=== PATIENT | male | born 1975 | race Caucasian/White ===

== ENCOUNTER → 2018-04-05 10:33 | Outpatient (CLI) | payer BC, SELFPAY ==
[2018-04-05 11:30] LABS: Basophils % 0.5 % (0.1-2.0); Eosinophils # 0.2 K/mm3 (0.0-0.4); Eosinophils % 3.2 % (0.1-12.0); Hematocrit 46.4 % (42.0-52.0); Lymphocytes # 1.6 K/mm3 (0.7-4.5); Lymphocytes % 32.9 K/mm3 (10-50); Mean Corpuscular HGB Conc 34.5 g/dL (31.8-35.4); Mean Corpuscular Hemoglobin 28.9 pg (27.0-31.2); Mean Corpuscular Volume 83.9 fl (80-94); Mean Platelet Volume 7.8 fl (7.4-10.4); Monocytes # 0.4 K/mm3 (0.1-1.0); Monocytes % 7.9 % (1.7-9.3); Neutrophils # 2.6 K/mm3 (1.8-7.8); Neutrophils % 55.6 % (37.0-80.0); Platelet Count 134 K/mm3 (142-424); Red Blood Count 5.54 M/mm3 (4.60-6.20); Red Cell Distribution Width 12.7 % (11.5-17.5); White Blood Count 4.7 K/mm3 (4.8-10.8)
[2018-04-05 12:57] LABS: Alanine Aminotransferase 24 U/L (12-78); Albumin/Globulin Ratio 1.2 (1.1-1.8); Alkaline Phosphatase 116 U/L (46-116); Anion Gap 14.1 mEq/L (5-15); Aspartate Amino Transferase 16 U/L (15-37); Bilirubin,Total 0.4 mg/dL (0.2-1.0); Blood Urea Nitrogen 15 mg/dL (7-18); Calcium 8.4 mg/dL (8.5-10.1); Carbon Dioxide 23 mmol/L (21.0-32.0); Chloride 104 mmol/L (98-107); Creatinine,Serum 1.07 mg/dL (0.70-1.30); Estimated Glomerular Filt Rate 76 ml/min (>60); Free Thyroxine Index 2.3 ug/dL (5.93-13.13); GFR (African American) 92 ML/MIN (>60); Globulin 3.3 gm/dl (1.3-3.2); Glucose 85 mg/dL (74-106); Potassium 4.1 mmoL/L (3.5-5.1); Sodium 137 mmol/L (136-145); T4 (Thyroxine) 7.5 ug/dl (4.7-13.3); Total Protein,Serum 7.3 gm/dL (6.4-8.2); Triiodothryronine (T3) Uptake 30 % (31-39)
[2018-04-05 13:05] LABS: Erythrocyte Sedimentation Rate 11 mm/hr (0-15)
[2018-04-07 11:11] LABS: Anti-Centromere B Antibodies 0.6 AI (0.0-0.9); Anti-Jo-1 <0.2 AI (0.0-0.9); Anti-Smith Antibody <0.2 AI (0.0-0.9); Antichromatin Antibodies 5.3 AI (0.0-0.9); Antiscleroderma-70 Antibodies <0.2 AI (0.0-0.9); RNP Antibodies <0.2 AI (0.0-0.9); Sjogren's Anti-SS-A <0.2 AI (0.0-0.9); Sjogren's Anti-SS-B <0.2 AI (0.0-0.9)
[2018-04-08 09:19] LABS: Anti-DNA (DS) Ab Qn 4 IU/mL (0-9)
== END ==
PROVIDERS: Visit Provider Internal Medicine Adolescent Medicine
DX: L40.9 Psoriasis, unspecified (principal); R76.8 Other specified abnormal immunological findings in serum; D69.6 Thrombocytopenia, unspecified
CPT/HCPCS: 36415; 80053; 84436; 84443; 84479; 85025; 85651; 86225; 86235

== ENCOUNTER → 2019-11-20 10:21 | Outpatient (CLI) | payer BC, SELFPAY ==
[2019-11-20 11:09] LABS: Basophils % 0.3 % (0.1-2.0); Eosinophils # 0.1 K/mm3 (0.0-0.4); Eosinophils % 2.3 % (0.1-12.0); Hematocrit 45.2 % (42.0-52.0); Hemoglobin 15.8 g/dL (14.1-18.0); Lymphocytes # 1.4 K/mm3 (0.7-4.5); Lymphocytes % 27.6 % (10-50); Mean Corpuscular HGB Conc 34.9 g/dL (31.8-35.4); Mean Corpuscular Hemoglobin 29.5 pg (27.0-31.2); Mean Corpuscular Volume 84.6 fl (80-94); Mean Platelet Volume 7.9 fl (7.4-10.4); Monocytes # 0.4 K/mm3 (0.1-1.0); Monocytes % 6.7 % (1.7-9.3); Neutrophils # 3.3 K/mm3 (1.8-7.8); Neutrophils % 63.1 % (37.0-80.0); Platelet Count 147 K/mm3 (142-424); Red Blood Count 5.34 M/mm3 (4.60-6.20); Red Cell Distribution Width 13.2 % (11.5-17.5); White Blood Count 5.2 K/mm3 (4.8-10.8)
[2019-11-20 12:20] LABS: Alanine Aminotransferase 32 U/L (12-78); Albumin Level 4.1 gm/dL (3.4-5.0); Albumin/Globulin Ratio 1.4 (1.1-1.8); Alkaline Phosphatase 100 U/L (46-116); Anion Gap 13.9 mEq/L (5-15); Aspartate Amino Transferase 15 U/L (15-37); Bilirubin,Total 0.6 mg/dL (0.2-1.0); Blood Urea Nitrogen 12 mg/dL (7-18); Calcium 8.7 mg/dL (8.5-10.1); Carbon Dioxide 26 mmol/L (21.0-32.0); Chloride 105 mmol/L (98-107); Estimated Glomerular Filt Rate 73 ml/min (>60); GFR (African American) 89 ML/MIN (>60); Glucose 100 mg/dL (74-106); Potassium 3.9 mmoL/L (3.5-5.1); Sodium 141 mmol/L (136-145); Total Protein,Serum 7.1 gm/dL (6.4-8.2)
== END ==
PROVIDERS: Internal Medicine Adolescent Medicine; Visit Provider Nurse Practitioner Family
DX: Z86.2 Personal history of diseases of the blood and blood-forming organs and certain disorders involving the immune mechanism (principal)
CPT/HCPCS: 36415; 80053; 85025

== ENCOUNTER → 2020-02-23 17:06 | Outpatient (CLI) | payer MEDICAID, SELFPAY | PROVIDERS: PCP Nurse Practitioner Family; Visit Provider Nurse Practitioner Family | DX: G47.33 Obstructive sleep apnea (adult) (pediatric) (principal); J44.9 Chronic obstructive pulmonary disease, unspecified; E66.9 Obesity, unspecified | CPT/HCPCS: G0399 ==

== ENCOUNTER → 2021-02-23 07:21 | Outpatient (CLI) | payer MEDICAID, SELFPAY ==
[2021-02-23 08:14] LABS: Basophils % 0.5 % (0.1-2.0); Eosinophils # 0.1 K/mm3 (0.0-0.4); Eosinophils % 1.8 % (0.1-12.0); Hematocrit 45.3 % (42.0-52.0); Hemoglobin 15.7 g/dL (14.1-18.0); Lymphocytes # 1.7 K/mm3 (0.7-4.5); Lymphocytes % 34.6 % (10-50); Mean Corpuscular HGB Conc 34.7 g/dL (31.8-35.4); Mean Corpuscular Hemoglobin 28.5 pg (27.0-31.2); Mean Corpuscular Volume 82.1 fl (80-94); Mean Platelet Volume 7.5 fl (7.4-10.4); Monocytes # 0.3 K/mm3 (0.1-1.0); Monocytes % 6.9 % (1.7-9.3); Neutrophils # 2.7 K/mm3 (1.8-7.8); Neutrophils % 56.3 % (37.0-80.0); Platelet Count 171 K/mm3 (142-424); Red Blood Count 5.52 M/mm3 (4.60-6.20); Red Cell Distribution Width 13.4 % (11.5-17.5); White Blood Count 4.9 K/mm3 (4.8-10.8)
[2021-02-23 09:11] LABS: Alanine Aminotransferase 22 U/L (12-78); Albumin Level 4.3 g/dl (3.5-5.0); Albumin/Globulin Ratio 1.6 (1.1-1.8); Alkaline Phosphatase 101 U/L (38-126); Anion Gap 11.2 mEq/L (5-15); Aspartate Amino Transferase 24 U/L (17-59); Bilirubin,Total 0.5 mg/dl (0.2-1.3); Blood Urea Nitrogen 18 mg/dl (9-20); Calcium 9.2 mg/dl (8.4-10.2); Carbon Dioxide 28 mmol/L (22.0-30.0); Chloride 104 mmol/L (98-107); Chol/HDL Ratio 8.2 (1-3.5); Cholesterol 172 mg/dl (140-200); Estimated Glomerular Filt Rate 73 ml/min (>60); GFR (African American) 88 ML/MIN (>60); Globulin 2.7 g/dL (1.3-3.2); Glucose 103 mg/dl (74-100); HDL Cholesterol 21 mg/dl (40-60); Potassium 4.2 mmoL/L (3.5-5.1); Sodium 139 mmol/L (136-145); Triglycerides 284 mg/dl (30-150); VLDL Cholesterol 57 mg/dL (0-40)
[2021-02-23 09:22] LABS: Direct LDL Cholesterol 104.77 mg/dL (100-129)
[2021-02-23 09:42] LABS: Prostate Specific Ag Screen 1.1 ng/ml (0.0-4.0); Thyroid Stimulating Hormone 5.11 uIU/mL (0.465-4.68)
[2021-02-23 09:48] LABS: Hemoglobin A1C 5.3 % (4.0-6.0)
[2021-02-26 10:42] LABS: Testosterone,Total 215 ng/dL (264-916)
== END ==
PROVIDERS: Visit Provider Nurse Practitioner Family
DX: I10 Essential (primary) hypertension (principal); E78.2 Mixed hyperlipidemia; N52.9 Male erectile dysfunction, unspecified; Z12.5 Encounter for screening for malignant neoplasm of prostate; Z86.2 Personal history of diseases of the blood and blood-forming organs and certain disorders involving the immune mechanism
CPT/HCPCS: 36415; 80053; 80061; 83036; 84403; 84439; 84443; 85025; G0103

== ENCOUNTER → 2021-04-13 14:34 | Outpatient (CLI) | payer MEDICAID, SELFPAY ==
--- NOTE | 2021-04-13 14:37 | XR_ITS ---
PROCEDURE: XR LUMBAR SPINE MIN 4V CLINICAL INDICATION: ACUTE MIDLINE LOW BACK PAIN W/O SCIATICA COMPARISON: MR [facility] MRI-L-SPINE W/WO from 10/17/2015 FINDINGS: No fracture or dislocation. No lytic or blastic change. There is normal mineralization. There is mild degenerative disc disease at T11-T12 T12-L1 and L1-L2 with minimal endplate irregularity at L1-L2. There is mild dorsal subluxation the lower coccyx by 5 mm and is age indeterminate. Other findings:None. IMPRESSION: Mild degenerative change. Minimal dorsal subluxation of the lower coccyx age indeterminate Dictated by: Marck Knowles MD 04/13/2021 15:24 Marck Knowles MD in [place] 04/13/2021 15:24
== END ==
PROVIDERS: PCP Nurse Practitioner Family; Visit Provider Nurse Practitioner Family
DX: M54.5 Low back pain (principal)
CPT/HCPCS: 72110

== ENCOUNTER → 2021-10-02 12:47 | Outpatient (CLI) | payer MEDICAID, SELFPAY ==
--- NOTE | 2021-10-02 13:04 | XR_ITS ---
PROCEDURE: XR SCAPULA LT CLINICAL INDICATION: PAIN COMPARISON: No exams were available for comparison FINDINGS: No fracture or dislocation. No lytic or blastic change. There is normal mineralization. The joint spaces are well-preserved. No significant degenerative/arthritic changes. No erosive changes evident. Other findings:None. IMPRESSION: No acute findings. Dictated by: Marck Knowles MD 10/02/2021 15:54 Marck Knowles MD in [place] 10/02/2021 15:54
[2021-10-02 13:23] LABS: Basophils % 0.7 % (0.1-2.0); Eosinophils # 0.1 K/mm3 (0.0-0.4); Eosinophils % 1.5 % (0.1-12.0); Hematocrit 46.5 % (42.0-52.0); Hemoglobin 16.5 g/dL (14.1-18.0); Lymphocytes # 1.3 K/mm3 (0.7-4.5); Lymphocytes % 32.2 % (10-50); Mean Corpuscular HGB Conc 35.5 g/dL (31.8-35.4); Mean Corpuscular Hemoglobin 29.1 pg (27.0-31.2); Mean Platelet Volume 7.4 fl (7.4-10.4); Monocytes # 0.4 K/mm3 (0.1-1.0); Monocytes % 9.1 % (1.7-9.3); Neutrophils # 2.3 K/mm3 (1.8-7.8); Neutrophils % 56.5 % (37.0-80.0); Platelet Count 158 K/mm3 (142-424); Red Blood Count 5.66 M/mm3 (4.60-6.20); Red Cell Distribution Width 13.1 % (11.5-17.5); White Blood Count 4.1 K/mm3 (4.8-10.8)
[2021-10-02 14:56] LABS: Free T4 (Free Thyroxine) 0.86 ng/dl (0.78-2.19)
[2021-10-02 15:01] LABS: Chloride 102 mmol/L (98-107); Potassium 4.5 mmoL/L (3.5-5.1); Sodium 139 mmol/L (136-145)
[2021-10-02 15:03] LABS: Alanine Aminotransferase 32 U/L (12-78); Alkaline Phosphatase 92 U/L (38-126); Anion Gap 13.5 mEq/L (5-15); Aspartate Amino Transferase 28 U/L (17-59); Bilirubin,Total 0.5 mg/dl (0.2-1.3); Blood Urea Nitrogen 16 mg/dl (9-20); Carbon Dioxide 28 mmol/L (22.0-30.0); Estimated Glomerular Filt Rate 73 ml/min (>60); GFR (African American) 88 ML/MIN (>60)
[2021-10-02 15:04] LABS: Albumin Level 4.6 g/dl (3.5-5.0); Albumin/Globulin Ratio 1.6 (1.1-1.8); Calcium 9.1 mg/dl (8.4-10.2); Globulin 2.8 g/dL (1.3-3.2); Glucose 105 mg/dl (74-100); Magnesium 1.9 mg/dl (1.6-2.3); Total Protein,Serum 7.4 g/dl (6.3-8.2)
[2021-10-02 15:33] LABS: Thyroid Stimulating Hormone 2.33 uIU/mL (0.465-4.68)
== END ==
PROVIDERS: Visit Provider Nurse Practitioner Family
DX: I10 Essential (primary) hypertension (principal); R79.89 Other specified abnormal findings of blood chemistry; Z86.2 Personal history of diseases of the blood and blood-forming organs and certain disorders involving the immune mechanism
CPT/HCPCS: 36415; 73010; 80053; 83735; 84439; 84443; 85025

== ENCOUNTER → 2022-08-04 08:50 | Outpatient (CLI) | payer MEDICAID, SELFPAY ==
[2022-08-04 09:10] LABS: Basophils % 0.8 % (0.1-2.0); Eosinophils # 0.1 K/mm3 (0.0-0.4); Eosinophils % 3.1 % (0.1-12.0); Hematocrit 46.4 % (42.0-52.0); Hemoglobin 15.7 g/dL (14.1-18.0); Lymphocytes # 1.3 K/mm3 (0.7-4.5); Lymphocytes % 33.1 % (10-50); Mean Corpuscular HGB Conc 33.9 g/dL (31.8-35.4); Mean Corpuscular Hemoglobin 29.1 pg (27.0-31.2); Mean Corpuscular Volume 85.8 fl (80-94); Mean Platelet Volume 8.8 fl (7.4-10.4); Monocytes # 0.3 K/mm3 (0.1-1.0); Monocytes % 7.9 % (1.7-9.3); Neutrophils # 2.1 K/mm3 (1.8-7.8); Neutrophils % 55.2 % (37.0-80.0); Platelet Count 169 K/mm3 (142-424); Red Blood Count 5.41 M/mm3 (4.60-6.20); Red Cell Distribution Width 13.5 % (11.5-17.5); White Blood Count 3.8 K/mm3 (4.8-10.8)
[2022-08-04 09:40] LABS: Alanine Aminotransferase 21 U/L (12-78); Albumin Level 4.1 g/dl (3.5-5.0); Albumin/Globulin Ratio 1.5 (1.1-1.8); Alkaline Phosphatase 114 U/L (38-126); Aspartate Amino Transferase 25 U/L (17-59); Bilirubin,Total 0.6 mg/dl (0.2-1.3); Blood Urea Nitrogen 15 mg/dl (9-20); Calcium 8.5 mg/dl (8.4-10.2); Carbon Dioxide 26 mmol/L (22.0-30.0); Chloride 104 mmol/L (98-107); Chol/HDL Ratio 6.9 (1-3.5); Cholesterol 179 mg/dl (140-200); Estimated Glomerular Filt Rate 81 ml/min (>60); GFR (African American) 98 ML/MIN (>60); Globulin 2.7 g/dL (1.3-3.2); Glucose 112 mg/dl (74-100); HDL Cholesterol 26 mg/dl (40-60); Sodium 142 mmol/L (136-145); Total Protein,Serum 6.8 g/dl (6.3-8.2); Triglycerides 137 mg/dl (30-150); VLDL Cholesterol 27 mg/dL (0-40)
[2022-08-04 09:57] LABS: Direct LDL Cholesterol 105.15 mg/dL (100-129)
[2022-08-04 10:55] LABS: Anion Gap 16.6 mEq/L (5-15); Potassium 4.6 mmoL/L (3.5-5.1)
[2022-08-04 11:29] LABS: Thyroid Stimulating Hormone 1.96 uIU/mL (0.465-4.68)
[2022-08-05 08:10] LABS: Testosterone,Total 266 ng/dL (264-916)
== END ==
PROVIDERS: Nurse Practitioner Family; PCP Nurse Practitioner Family; Visit Provider Nurse Practitioner Family
DX: I10 Essential (primary) hypertension (principal); E78.2 Mixed hyperlipidemia; R79.89 Other specified abnormal findings of blood chemistry; N52.9 Male erectile dysfunction, unspecified
CPT/HCPCS: 36415; 80053; 80061; 84403; 84443; 85025

== ENCOUNTER 2024-08-11 13:56 | Emergency (ER) | payer SELFPAY ==
--- NOTE | 2024-08-11 14:01 | XR_ITS ---
PROCEDURE INFORMATION: Exam: XR Left Hand Exam date and time: 08/11/2024 1:57 PM Age: 49 years old Clinical indication: Pain; Finger(s); Left; Patient HX: Caught thumb in gate TECHNIQUE: Imaging protocol: Radiologic exam of the left hand. Views: 3 or more views. COMPARISON: No relevant prior studies available. FINDINGS: Bones/joints: There is a possible subtle fracture seen involving the 1st distal phalanx near its base. This is seen only on one view adequately. Soft tissues: Normal. IMPRESSION: Possible fracture base of the 1st distal phalanx.
[2024-08-11 14:10] VITALS: BP 141/86; PULSE 73; RESP 18; TEMP 36.6; O2SAT 98; BMI 29.3
--- NOTE | 2024-08-11 14:28 | EXP.UTC ---
Discharge Plan Disposition Patient Disposition: Home, Self-Care Condition: Good Prescriptions Prescriptions: New cephalexin 500 mg capsule 500 mg PO QID 10 Days Qty: 40 0RF Referrals Follow up/Referrals: Marco A Tavares DO [Staff Physician] - See instructions Janeth Austin APRN [Primary Care Provider] - See instructions Activity Restrictions/Add. Instructions Additional Instructions/Restrictions: Rest the extremity, apply ice for 15 minutes as tolerated three or four times per day, Elevate the extremity as tolerated while you are resting. Take ibuprofen for pain. Take the cephalexin (keflex-antibiotics) as directed. Follow up with Dr. Tavares (orthopedics). I put in a referral and called him, but you need to call his office and schedule an appointment. His office phone number will be on this paperwork. Follow up with your regular doctor. GO TO THE ER FOR ANY WORSENING SYMPTOMS Clinical Impressions Clinical Impression: Fracture of thumb, left, open, Laceration of left thumb Stand Alone Forms Stand Alone Forms: Work/School Release Instructions Patient Instructions: DI for Finger Fracture, How to Take Care of Your Splint Print Language Print Language: Greenlandic Discharge ED Provider: Daren Vivas [facility] HPI General Stated complaint: thumb xray Mode of Arrival: Ambulatory Source of Information: Patient Limitations: No Limitations Time Seen by Provider: 08/11/24 14:28 Description of Symptoms (Recalled from Triage Doc. by RN): PATIENT C/O INJURY/LACERATION TO LEFT THUMB AFTER GETTING IT HIT AT WORK TODAY HEENT Symptoms (Recalled from RN notes): No Resp Symptoms (Recalled from RN notes): No Skin Symptoms (Recalled from RN notes): Yes MS Symptoms (Recalled from RN notes): Yes Functional Status (Recalled from RN notes): WNL History of Present Illness Provider Complaint: He states that while at his job he got his left thumb caught in a gate latch. This pinched his thumb and caused a laceration. He denies any other injury. Related Data Previous Rx's ?Medication ?Instructions ?Recorded cephalexin 500 mg capsule 500 mg PO QID 10 days #40 caps 08/11/24 Allergies Allergy/AdvReac Type Severity Reaction Status Date / Time No Known Allergies Allergy Unverified 03/10/21 15:05 Worker's Comp Is this a Worker's Comp case?: No [facility] Disclaimer: The information contained in this section may have been updated after the patient was seen, as this information can be updated by other users. Medical History (Updated 08/11/24 @ 15:02 by Daren Vivas APRN) Hypertension Social History Smoking Status: Former smoker alcohol intake: current alcohol intake frequency: holidays/special occasions only substance use type: denies use current occupational status: unemployed Travel in the last 8 weeks: None household members: spouse and family housing: house ROS Obtained: Yes All systems reviewed & no additional complaints except as documented Constitutional Constitutional: Denies chills and Denies fever(s) Eyes Eyes: Denies eye discharge ENT Ears, Nose, Mouth, and Throat: Denies dizziness, Denies otalgia and Denies sore throat Cardiovascular Cardiovascular: Denies chest pain Respiratory Respiratory: Denies shortness of breath, Denies chest congestion, Denies cough, Denies stridor and Denies wheezing Gastrointestinal Gastrointestingal: Denies nausea or vomiting Musculoskeletal Musculoskeletal: Reports as per HPI Integumentary/Breasts Skin/Breast: Reports as per HPI Neurologic Neurologic: Denies dizziness and Denies paresthesias Allergic/Immunologic Allergic/Immunologic: Denies wheezing Physical Exam General General appearance: alert and in no apparent distress Head Head exam: atraumatic, normocephalic and normal inspection Eye Eye exam: Present normal appearance, PERRL and EOMI ENT ENT exam: Present normal exam, normal oropharynx, mucous membranes moist, TM's normal bilaterally and normal external ear exam Neck Neck exam: Present normal inspection, full ROM and trachea midline; Absent meningismus or lymphadenopathy Chest Chest inspection: Present normal inspection and symmetric chest wall rise; Absent tenderness Respiratory Respiratory exam: Present normal lung sounds bilaterally; Absent respiratory distress Cardiovascular Cardiovascular exam: Present regular rate and normal rhythm; Absent JVD Abdominal Exam Abdominal exam: Present soft and normal bowel sounds; Absent distention, tenderness or guarding Extremities Exam Extremities exam: Present normal inspection, full ROM and normal capillary refill; Absent calf tenderness Expanded Upper Extremity Exam Left: Elbow exam: Present normal inspection and full ROM; Absent tenderness, pain w/ pronation/supination or tenderness over radial head Forearm/Wrist exam: Present normal inspection and full ROM; Absent tenderness, tenderness over anatomical snuff box or pain with axial thumb loading Hand exam: Present full ROM and tenderness; Absent swelling, abrasion, laceration, skin avulsion, ecchymosis, deformity, crepitus, dislocation, erythema, amputation, nail avulsion or subungual hematoma Neuromotor exam: Normal wrist extension, thumb opposition, thumb IP flexion, thumb adduction and fingers 2-5 abduction Neurosensory exam: Normal radial nerve, ulnar nerve and median nerve Vascular exam: Normal capillary refill, radial pulse and ulnar pulse Back Exam Back exam: Present normal inspection; Absent tenderness Neurological Exam Neurological exam: Present alert and oriented X3 Psychiatric Psychiatric exam: Present normal affect and normal mood Skin Skin exam: Present other (there is a 0.5 cm linear laceration on his left thumb. no deep tissue damage or tendon damage, he has good 2 point touch discrimination distal to the wound. no foreign body. ) Lymphatic Lymphatic Findings: no adenopathy Medical Decision Making Medical Records Medical records reviewed: No I reviewed the patient's medical records. Screening: Per USPSTF and CDC recommendations, given the prevalence of disease in our region, it is our hospital?s policy to screen for HIV and viral Hepatitis for all patients aged 18 and over and those with ongoing risk factors. Evan Inquiry Pt receiving controlled substance: No Vital Signs: 08/11/24 14:10 Temperature 97.9 F Temperature Source Oral Pulse Rate [Right Brachial] 73 Respiratory Rate 18 Blood Pressure [Right Arm] 141/86 H Blood Pressure Mean [Right Arm] 104 Blood Pressure Source [Right Arm] Automatic Cuff Blood Pressure Position [Right Arm] Sitting 02 Sat by Pulse Oximetry 98 Oxygen Delivery Method Room Air Orders (Tests/Meds): ORDERS Category Date Time Status Hand XR left minimum 3 views [XR hand LT min 3V] Stat Exams 08/11/24 14:01 Taken Radiology Data #1: Image(s): Hand Image Reviewed: Yes I reviewed the patient's radiology image and Yes I have reviewed radiologist's interpretation Preliminary Findings: Abnormal Accession No. : [id number] Patient Name / ID : FABIEN SMITH / [id number] Exam Date : 08/11/2024 13:57:30 ( Final ) Study Comment : Sex / Age : M / 49Y Creator : LARS WINSLOW MD Dictator : [employer] Supervisor : [employer] Supervisor : LARS WINSLOW MD Approver2 : Report Date : 08/11/2024 14:37:57 My Comment : PROCEDURE INFORMATION: Exam: XR Left Hand Exam date and time: 08/11/2024 1:57 PM Age: 49 years old Clinical indication: Pain; Finger(s); Left; Patient HX: Caught thumb in gate TECHNIQUE: Imaging protocol: Radiologic exam of the left hand. Views: 3 or more views. COMPARISON: No relevant prior studies available. FINDINGS: Bones/joints: There is a possible subtle fracture seen involving the 1st distal phalanx near its base. This is seen only on one view adequately. Soft tissues: Normal. IMPRESSION: Possible fracture base of the 1st distal phalanx. Procedures Risk/Benefits of Procedure(s) Were Explained: Yes Orthopedic Splinting/Casting Injury #1: Side: left Upper Extremity Injury Location: thumb Upper Extremity Immobilizer: thumb spica and applied by nurse/dr stewart Post Cast/Splinting Neuro Status: intact and no change Post Cast/Splinting Vasc Status: intact and no change
[2024-08-11 15:41] VITALS: BP 141/86; PULSE 73; RESP 18; TEMP 36.6; O2SAT 98
[2024-08-11] MEDS: NEOSPORIN OINTMENT 0.9GM UDP 1 EACH TP (15:45)
--- NOTE | 2024-08-11 15:45 | PC.NURSE ---
NEOSPORIN AND DRY NON-STICK DRESSING APPLIED TO LACERATION PRIOR TO SPLINT PLACEMENT
[2024-08-12 08:31] LABS: Coronavirus 19, PCR Not Detected (NotDetected); Influenza A, PCR Not Detected (NotDetected); Influenza B, PCR Not Detected (NotDetected)
== END 2024-08-11 15:57 | disposition home or self-care (01) ==
PROVIDERS: Emergency Provider Nurse Practitioner Family; PCP Nurse Practitioner Family
DX: S62.502B Fracture of unspecified phalanx of left thumb, initial encounter for open fracture (principal); W22.8XXA Striking against or struck by other objects, initial encounter
CPT/HCPCS: 26770; 73130; 87636; 99214; G0382

== ENCOUNTER 2024-08-20 09:49 | Outpatient (CLI) | payer SELFPAY ==
--- NOTE | 2024-08-20 09:55 | XR_ITS ---
FINAL REPORT CLINICAL HISTORY: .fx 3 weeks ago no surgery FINDINGS: Right hand Four views were obtained. There is mild irregularity of the first proximal phalanx, may represent a nondisplaced fracture. There is a splint at the radial aspect of the hand and wrist. IMPRESSION: Findings may represent a nondisplaced fracture of the first proximal phalanx. Reviewed, Interpreted and Dictated by Vincent Vazquez III, MD Transcribed by Suzanne Winters Authenticated and [facility]
== END 2024-08-20 23:59 | disposition home or self-care (01) ==
LOC: RAD 09:52
PROVIDERS: PCP Nurse Practitioner Family; Visit Provider Physician Assistant Surgical
DX: S62.502B Fracture of unspecified phalanx of left thumb, initial encounter for open fracture (principal)
CPT/HCPCS: 73130

== ENCOUNTER 2024-09-03 09:16 | Outpatient (CLI) | payer SELFPAY ==
--- NOTE | 2024-09-03 09:20 | XR_ITS ---
FINAL REPORT CLINICAL HISTORY: thumb fx f/u FINDINGS: LEFT THUMB Three views demonstrate no acute fracture or dislocation. Previously seen irregularity is no longer identified. Sesamoid bones appear stable. The visualized joint spaces are normally aligned. The soft tissues are unremarkable. IMPRESSION: No acute process. Reviewed, Interpreted and Dictated by Keron Brooks MD Transcribed by Viviana Rojas Authenticated and [facility] [place]
== END 2024-09-03 23:59 | disposition home or self-care (01) ==
LOC: RAD 09:17
PROVIDERS: PCP Internal Medicine Adolescent Medicine; Visit Provider Physician Assistant Surgical
DX: S62.502B Fracture of unspecified phalanx of left thumb, initial encounter for open fracture (principal)
CPT/HCPCS: 73130

== ENCOUNTER 2024-09-24 09:02 | Outpatient (CLI) | payer SELFPAY ==
--- NOTE | 2024-09-24 09:08 | XR_ITS ---
FINAL REPORT CLINICAL HISTORY: left thumb fx f/u COMPARISON: 09/03/2024 FINDINGS: LEFT HAND Three views demonstrate no acute fracture or dislocation. There are mild degenerative changes at the radial aspect of the wrist. The visualized joint spaces are normally aligned. The soft tissues are unremarkable. IMPRESSION: No acute process. Reviewed, Interpreted and Dictated by Vincent Vazquez III, MD Transcribed by Viviana Rojas Authenticated and [facility]
== END 2024-09-24 23:59 | disposition home or self-care (01) ==
LOC: RAD 09:04
PROVIDERS: PCP Internal Medicine Adolescent Medicine; Visit Provider Physician Assistant Surgical
DX: S62.502B Fracture of unspecified phalanx of left thumb, initial encounter for open fracture (principal)
CPT/HCPCS: 73130

== ENCOUNTER 2025-04-08 09:30 | Outpatient (CLI) | payer SELFPAY ==
--- OUTSIDE RECORDS SUMMARY | 2024-05-06 08:00 | XMS_ITS ---
Author Organization [facility] Address [facility] [address] [place] [id number] Care Team Providers Care Invasive Manager Name Role Phone Pedro Glasgow Primary Care Provider Eddie Avilez Unavailable [phone] Allergies No Known Allergies Results Component Value Reference Range Notes Influenza Screen (in house) Reviewed date:05/07/2024 08:51:11 AM Interpretation: Performing Lab: Notes/Report: results Pos A CBC Fingerstick (in house) Reviewed date:05/07/2024 08:51:20 AM Interpretation: Performing Lab: Notes/Report: wbc 4.8 3.5 - 10 lym 23.8% 15 - 50 mid 6.7% 2 - 15 gran 69.5% 35 - 80 rbc 5.19 3.5 - 5.5 hgb 15.3 11.5 - 16.5 hct 44.3 35 - 55 mcv 85.3 75 - 100 mch 29.5 25 - 35 mchc 34.6 31 - 38 plat 123 100 - 400 Covid test (in house) Reviewed date:05/07/2024 08:51:29 AM Interpretation: Performing Lab: Notes/Report: Result: Neg REASON FOR VISIT per Dr Guerra-sore throat Medications Medication SIG (Take, Route, Fr equency, Duration) Notes Start Date End Date Status Tamiflu 75 MG 1 capsule Orally Twi ce a day; Duration: 5 day(s) 05/06/2024 Active PriLOSEC OTC 20 MG 1 tablet 30 minutes before morning meal Orally Once a day; Duration: 30 day(s) Active Vital Signs Blood pressure systolic 130 mm Hg 05/06/20 24 Blood pressure diastolic 82 mm Hg 024 Heart Rate 78 /min 05/06/2024 Height 74 in 05/06/2024 Weight 265.6 lbs 05/06/2024 BMI 34.10 kg/m2 05/06/2024 Encounters Encounter Location Date Provider Diagnosis [facility] [address] [place] [id number] 05/06/2024 Eddie Avilez Influenza A J 10.1 Assessments Encounter Date Diagnosis (ICD Code) Assessment Notes Treatment Notes Treatment Clinical Notes Section Notes 05/06/2024 Influenza A (ICD-10 - J10.1) Plan Of Treatment Medication Medication Name Sig Start Date Stop Date Notes Tamiflu 75 MG 1 capsule Orally Twi ce a day; Duration: 5 day(s) 05/06/2024 Next Appt Details Follow Up: prn, Reason: Progress Notes * Gee TABOROB: 7 (50 yo M)Acc No.[id number]:05/06/2024 Progress Notes Patient: Kaiden SAHU Provider: Jaret Avilez M.D. :1975 A ge:49 Y S ex:Male Date:05/06/2024 Address:[address] [place] [address] Pcp:Pedro Glasgow Subjective: * Chief Complaints: * [address] Guerra-sore throat. * HPI: E NT/respiratory: 49 year old male presents with c/o cough P t complains of greenish yellow sputum production cough that started yesterday. Associated with sore throat, body aches and nasal congestion. * ROS: D ERMATOLOGY: no R janet. n o H shaniqua. G ASTROENTEROLOGY: no N ausea. n o V omiting. U ROLOGY: no D ifficulty urinating. n o B lood in urine. * Medical History: M edical History Verified. * Surgical History: D enies Past Surgical History. * Hospitalization/Major Diagno stic Procedure: D enies Past Hospitalization. * Family History: N o Family History documented.. * Medications: T aking PriLOSEC OTC 20 MG Tablet Delayed Release 1 tablet 30 minutes before morning meal Orally Once a day , Medication List reviewed and reconciled with the patient * Allergies: N .K.D.A. Objective: * Vitals: W t:265.6, Temp:98.1, BP:130/82, HR:78, O2 Sat:98% on RA, Nurse:susi, Ht:74, BMI:34.10. * Examination: E NT/Respiratory: General Appearance: N AD. O ral cavity : erythema without exudate on pharynx. N gilson : Shotty, nontender adenopathy. H eart : R RR, normal S1 S2. L ungs: c lear to auscultation bilaterally. Assessment: * Assessment: 1. I misael Verdin - J10.1 (Primary) Plan: * Treatment: Value Reference Range r esults Pos A * Lizett Christianson 05/06/2024 12:01:2 7 PM > , Provider reviewed results while patient in office. ?LAB: CBC Fingerstick (in house) (Collection Date & Time - 05/06/2024)* Value Reference Range w bc 4.8 3.5 - 10 * l ym 23.8% 15 - 50 * m id 6.7% 2 - 15 * g ran 69.5% 35 - 80 * r bc 5.19 3.5 - 5.5 * h gb 15.3 11.5 - 16.5 * h ct 44.3 35 - 55 * m cv 85.3 75 - 100 * m ch 29.5 25 - 35 * m chc 34.6 31 - 38 * p lat 123 100 - 400 * Abdirizak Christiansonira 05/06/2024 11:55:2 3 AM > , Provider reviewed results while patient in office. ?LAB: Covid test (in house) (Collection Date & Time - 05/06/2024)* Value Reference Range R esult: Neg * Abdirizak Christiansonira 05/06/2024 12:01:4 7 PM > , Provider reviewed results while patient in office. * Follow Up: p rn * Images: Billing Information: * Visit Code: 92374 Office Visit, Est Pt., Level 2. * Procedure Codes: * Electronic signature of Merary Avilez MD on 04/08/2025 at 09:35 AM EDT Sign off status: Pending * Provider: Jaret Avilez M.D. Date: 0 05/06/2024 Generated for Jose lomeli/Saira/eTransmitting on: 0 04/08/2025 09:35 AM EDT History and Physical Notes * HPI (History of Present Illness) Category Sub-Category Detail Notes Category Not es ENT/respiratory cough Pt complains of greenish yellow sputum production cough that started yesterday. Associated with sore throat, body aches and nasal congestion Examination Category Sub-Category Detail Notes Category Not es ENT/Respiratory Oral cavity : erythema without exudate on pharynx Neck : Shotty, nontender ad enopathy Heart : RRR, normal S1 S2 Lungs: clear to auscultatio n bilaterally General Appearance: NAD
--- NOTE | 2025-04-08 09:34 | XR_ITS ---
FINAL REPORT CLINICAL HISTORY: PAIN. ATTN MCP JOINT AND 5TH FINGER COMPARISON: 09/24/2024 FINDINGS: Three views of the right hand were obtained. There is no acute fracture or dislocation. The joint spaces are well preserved. There is no acute soft tissue abnormality. IMPRESSION: No acute abnormality identified. Reviewed, Interpreted and Dictated by Martínez Villa MD Transcribed by Jacey Pathak Authenticated and [facility]
--- OUTSIDE RECORDS SUMMARY | 2025-04-08 09:36 | XMS_ITS | Patient Health Record ---
[facility] [address] [facility] [facility] [address] [place] [id number] Care Team Providers Care Skiver Blockers Name Role Phone Pedro Glasgow Primary Care Provider [phone] Eddie Avilez Unavailable [phone] Allergies No Known Allergies Results Component Value [...] AM Interpretation: Performing Lab: Notes/Report: Result: Neg Reason For Referral No Information Medications Medication SIG (Take, Route, Fr equency, Duration) Notes Start Date End Date Status Tamiflu 75 MG 1 capsule Orally Twi ce a day; Duration: 5 day(s) 05/06/2024 Active PriLOSEC OTC 20 MG 1 tablet 30 minutes before morning meal Orally Once a day; Duration: 30 day(s) Active Vital Signs Heart Rate 78 /min 05/06/2024 Blood pressure diastolic 82 mm Hg 05/06/2024 Height 74 in 05/06/2024 Blood pressure systolic 130 mm Hg 05/06/2024 Weight 265.6 lbs 05/06/2024 BMI 34.10 kg/m2 05/06/2024 Encounters Encounter Location Date Provider Diagnosis [facility] [address] [place] [phone] 05/06/2024 Eddie Avilez Influenza A J 10.1 Assessments Encounter Date Diagnosis (ICD Code) Assessment Notes Treatment Notes Treatment Clinical Notes Section Notes 05/06/2024 Influenza A (ICD-10 - J10.1) Plan Of Treatment No Information Medical (General) History Surgical History Surgery Date(Month/Year)
== END 2025-04-08 23:59 | disposition home or self-care (01) ==
LOC: RAD 09:32
PROVIDERS: PCP Family Medicine; Visit Provider Family Medicine
DX: M79.641 Pain in right hand (principal)
CPT/HCPCS: 73120